=== PATIENT | male | born 1940 | race African-American/Black ===

== ENCOUNTER → 2021-08-10 | Outpatient (CLI) | payer OTHER ==
[2021-08-10 12:32] LABS: ABSOLUTE NEUTROPHILS 2.8 thou/uL (1.4-8.2); BASOPHILS 1.4 % (0.0-2.0); EOSINOPHILS 1.9 % (0.0-3.0); HEMATOCRIT 40.9 % (42.0-52.0); HEMOGLOBIN 13.8 gm/dL (14.0-18.0); LYMPHOCYTES 34.7 % (24.0-44.0); MCH 27.5 pg (26.0-34.0); MCHC 33.6 g/dL (28.0-37.0); MCV 81.9 fL (80.0-100.0); MONOCYTES 9.2 % (1.0-8.0); PLATELET COUNT 260 thou/uL (150-400); POLYS 52.8 % (36.0-66.0); RDW 15.5 % (10.5-14.5); WBC 5.2 thou/uL (4.0-11.0)
== END ==
LOC: LAB 11:45
PROVIDERS: Family Medicine; ATTEND Chiropractor
DX: C77.9 Secondary and unspecified malignant neoplasm of lymph node, unspecified (principal)